=== PATIENT | female | born 1990 | race American Indian/Alaskan Native ===

== ENCOUNTER 2022-07-01 06:01 | Day surgery (SDC) | payer BC ==
[2022-06-29 10:17] LABS: Eosinophils # (Auto) 0.1 K/mm3 (0.0-0.4); Eosinophils % (Auto) 1.8 % (0.0-4.3); Hematocrit 37.6 % (30.3-42.9); Hemoglobin 13.1 gm/dl (10.1-14.3); Lymphocytes # (Auto) 1.5 K/mm3 (1.2-5.4); Mean Corpuscular HGB Conc 35 % (30-34); Mean Corpuscular Volume 81 fl (79-97); Monocytes # (Auto) 0.5 K/mm3 (0.0-0.8); Monocytes % (Auto) 9.7 % (0.0-7.3); Platelet Count 236 K/mm3 (140-440); Red Blood Count 4.66 M/mm3 (3.65-5.03); Red Cell Distribution Width 13.9 % (13.2-15.2)
[2022-06-29 10:29] LABS: Blood Urea Nitrogen 12 mg/dL (7-17); Calcium 9.3 mg/dL (8.4-10.2); Hemolysis Index 0
[2022-06-29 10:44] LABS: BUN/Creatinine Ratio 17
--- NOTE | 2022-06-29 10:54 | Anesthesia Consultation ---
Anesthesia Consult and Med Hx Date of service: 07/01/22 - Airway Anesthetic Teeth Evaluation: Good ROM Head & Neck: Adequate Mental/Hyoid Distance: Adequate Mallampati Class: Class II Intubation Access Assessment: Probably Good - Pulmonary Exam CTA: Yes - Cardiac Exam Cardiac Exam: RRR - Pre-Operative Health Status ASA Pre-Surgery Classification: ASA2 Proposed Anesthetic Plan: General - Pulmonary Hx Smoking: No Hx Respiratory Symptoms: Yes (COVID 05/30/22; occasional nonproductive cough remains, otherwise resolved) SOB: No - Cardiovascular System Hx Hypertension: No - Central Nervous System CVA: No - Endocrine Hx Renal Disease: No Hx Liver Disease: No Hx Insulin Dependent Diabetes: No Hx Non-Insulin Dependent Diabetes: No Hx Thyroid Disease: No - Other Systems Hx Substance Use: Yes (occasional THC, none recently) - Additional Comments Anesthesia Medical History Comments: No prior GA. Had wisdom tooth extraction under ?sedation without complications. Reports several month hx of occasional chest pain described as sudden, sharp pain located in the right/center aspect of the chest that occurs with bending/movement lasting a few seconds then resolving on it's own. No associated symptoms. Episodes occurs a few times per month. EKG in PAT is NSR. Symptoms seem likely musculoskeletal etiology.
--- NOTE | 2022-06-29 16:55 | Electrocardiograph Report ---
Test Date: 2022-06-29 Test Time: 10:15:41 Pat Name: MEAGAN MONTOYA Department: Room: Gender: F Parking Enforcement Officer: STAN : 1990 Requested By: CYNTHIA CUNHA Order Number: [id number] Reading MD: Tuyet Song Measurements Intervals [place] Rate: 67 P: 24 NE: 168 QRS: 54 QRSD: 86 T: 45 QT: 389 QTc: 411 Interpretive Statements Sinus rhythm No previous ECG available for comparison Electronically Signed On 06-29-2022 16:54:28 EDT by Tuyet Song
[~2022-07-01 06:01] MED LIST: ACETAMINOPHEN 500 MG TAB PO SCH; FAMOTIDINE 20 MG/2 ML INJ IV SCH; LACTATED RINGERS 1,000 ML IV SCH; MIDAZOLAM 2 MG/2 ML INJ IV NR
[2022-07-01] MEDS ORDERED: propofoL 200 MG/20 ML VIAL IV ONE (07:07)
[2022-07-01] MEDS ORDERED: dexAMETHasone 20 MG/5 ML VIAL ONE (07:07)
[2022-07-01] MEDS ORDERED: ePHEDrine SULFATE 50 MG/1 ML INJ ONE (07:07)
[2022-07-01] MEDS ORDERED: ONDANSETRON 4 MG/2 ML INJ ONE (07:07)
[2022-07-01] MEDS ORDERED: HYDROmorphone 1 MG/1 ML INJ ONE (07:07)
[2022-07-01] MEDS ORDERED: LIDOCAINE MPF (2%) 20 MG/1 ML VIAL 5 ML ONE (07:07)
[2022-07-01] MEDS ORDERED: HYDROmorphone 0.5 MG/0.5 ML INJ IV PRN (07:29)
[2022-07-01] MEDS ORDERED: ONDANSETRON 4 MG/2 ML INJ IV PRN (07:29)
[2022-07-01] MEDS ORDERED: WATER FOR IRRIG STERILE 2000 ML IR ONE (07:29)
[2022-07-01] MEDS ORDERED: HYDROcodone/ACETAMINOPHEN 5-325 MG TAB PO PRN (07:29)
--- NOTE | 2022-07-01 07:29 | Anesthesia Day of Surgery ---
Anesthesia Day of Surgery - Day of Surgery Patient Examined: Yes Patient H&P Reviewed: Yes Patient is NPO: Yes
[2022-07-01] MEDS ORDERED: WATER FOR IRRIG STERILE 1,500 ML BOTTLE IR ONE (07:30)
[2022-07-01] MEDS ORDERED: ceFAZolin/STERILE WATER 2 GM/20 ML SYRINGE IV NR (08:36)
[2022-07-01] MEDS ORDERED: ceFAZolin/Water 2 GM/20 ML 2 GM/20 ML SYRINGE IV ONE (08:36)
--- NOTE | 2022-07-01 09:50 | Short Stay Summary ---
Short Stay Documentation Date of service: 07/01/22 - History H&P: obtained from office - Allergies and Medications Current Medications: Allergies banana Allergy (Verified 06/24/22 20:49) Unknown latex Allergy (Verified 06/24/22 20:49) Rash apple juice Allergy (Uncoded 06/24/22 20:49) Itching, nausea Home Medications Medication Instructions Recorded Confirmed Last Taken Type Ondansetron [Zofran ODT TAB] 8 mg PO Q8HR PRN 06/24/22 06/24/22 Unknown History Tamsulosin [Flomax] 0.4 mg PO QDAY 06/24/22 06/24/22 Unknown History Active Medications Acetaminophen (Acetaminophen 500 Mg Tab) 1,000 mg PO PREOP TYSON Stop: 07/01/22 23:59 Hydrocodone Bitart/Acetaminophen (Hydrocodone/Acetaminophen 5-325 Mg Tab) 2 each PO ONCE PRN PRN Reason: Pain, Moderate (4-6) Stop: 07/01/22 12:00 Famotidine (Famotidine 20 Mg/2 Ml Inj) 20 mg IV PREOP TYSON Stop: 07/01/22 23:59 Hydromorphone HCl (Hydromorphone 0.5 Mg/0.5 Ml Inj) 0.5 mg IV Q10MIN PRN PRN Reason: Pain , Severe (7-10) Stop: 07/01/22 20:00 Lactated Ringer's (Lactated Ringers) 1,000 mls @ 100 mls/hr IV DIRECT TYSON Stop: 07/01/22 23:59 Midazolam HCl (Midazolam 2 Mg/2 Ml Inj) 2 mg IV PREOP NR Stop: 07/01/22 23:59 Ondansetron HCl (Ondansetron 4 Mg/2 Ml Inj) 4 mg IV ONCE PRN PRN Reason: Nausea And Vomiting Stop: 07/01/22 13:00 - Brief post op/procedure progress note Date of procedure: 07/01/22 Pre-op diagnosis: rt ureteral stone Post-op diagnosis: same (impacted stone) Procedure: cysto, rpg, rt ureteroscopy, laser, basket stone, stent with internal string Anesthesia: GETA Surgeon: CYNTHIA CUNHA Specimen disposition: to lab Condition: stable - Hospital course Hospital course: macrobid, norco, post op info on chart - Disposition Condition at discharge: Stable Disposition: 01 HOME / SELF CARE / HOMELESS Short Stay Discharge Plan Follow up with: PRIMARY CARE, [Primary Care Provider] - 7 Days
[2022-07-01 10:55] VITALS: BP 146/79
--- NOTE | 2022-07-01 11:43 | Post Anesthesia Evaluation ---
- Post Anesthesia Evaluation Patient Participated: Yes Airway Patent: Yes Stable Respiratory Function: Yes Nausea/Vomiting: No Temp > 96.8F: Yes Pain Manageable: Yes Adequeate Hydration: Yes Anesthesia Complications: No
--- NOTE | 2022-07-01 11:46 | Fluoroscopy Report ---
FL retrograde urography Technique: Intraoperative fluoroscopic guidance was provided. Fluoroscopy time: 29 seconds. Fluoroscopy images: 7. Findings/Impression: Intraoperative fluoroscopic guidance for right ureteral stone with bilateral RPG and right stent placement. Please see procedure report for further details. Signer Name: Virgilio Richard MD Signed: 07/01/2022 11:42 AM Workstation Name: [employer]
--- NOTE | 2022-07-01 13:30 | Operative Report ---
DATE OF SURGERY: 07/01/2022 PREOPERATIVE DIAGNOSIS: A 7 mm proximal ureteral stone. POSTOPERATIVE DIAGNOSIS: A 7 mm proximal ureteral stone ____ impacted right ureteral stone. PROCEDURE PERFORMED: Cystoscopy, bilateral retrograde pyelograms, right ureteroscopy, holmium laser lithotripsy, basket stone extraction, double-J stent (6-Burmese 22 cm with a short internal string). SURGEON: Jose Leal MD ANESTHESIA: General. ESTIMATED BLOOD LOSS: Minimal. FLUIDS: Crystalloid. COMPLICATIONS: No complications. INDICATIONS: This 31-year-old female was seen in the office. She had a CT abdomen and pelvis, found to have a 7 mm right proximal stone with pain. She was in [place] and went to [place] in pain. We discussed options. She agreed to proceed with surgical intervention. Risks, benefits, complications explained. DESCRIPTION OF PROCEDURE: The patient was taken to the operative suite, placed in a supine position. After adequate general anesthesia, placed in the dorsal lithotomy position, prepped and draped in a sterile fashion. Pancystourethroscopy was performed with a 22-Burmese Storz cystoscope. No bladder pathology. Both ureteral orifices in normal position. Bilateral retrograde pyelograms were obtained with an 8-Burmese Tracy catheter and 8 mL of contrast. No filling defects or obstruction on the left. Right side, some filling defect in the pelvic girdle. Two 0.035 Glidewires were placed. Rigid ureteroscopy was performed. A yellow stone could be appreciated just below the upper aspect of the pelvic brim. Using a 200 micron fiber starting at 4 laguerre, holmium laser lithotripsy was performed. There was a fair amount of edema. I was able to see the stone and extract it, also extract the fragments. Ureteroscopy, renal pelvis, no other stones could be appreciated. Due to the edema, a 6-Burmese 22 cm double-J stent with a short internal string was left indwelling. We will leave the stent for several weeks. Bladder was drained. She was extubated and taken to recovery room. She will go home on Macrobid and [place]. TID: [id number] RECEIPT: [id number] ALMA ROSA/PROMISE/KAREN/NASH
== END 2022-07-01 11:40 | disposition home or self-care (01) ==
LOC: OR 06:01
PROVIDERS: ATTEND Urology
DX: N20.1 Calculus of ureter (principal); H40.9 Unspecified glaucoma; G43.909 Migraine, unspecified, not intractable, without status migrainosus; M19.90 Unspecified osteoarthritis, unspecified site; D64.9 Anemia, unspecified; Z91.040 Latex allergy status; Z88.8 Allergy status to other drugs, medicaments and biological substances; Z79.899 Other long term (current) drug therapy; Z72.89 Other problems related to lifestyle
CPT/HCPCS: 36415; 52356; 74420; 80048; 84703; 85025; 93005; C1758; C1769; C2617; J0690; J1100; J1170; J2250; J2405; J2704; J3490; J7120; Q9967